=== PATIENT | female | born 1990 | race Caucasian/White ===

== ENCOUNTER 2020-06-23 13:37 | Observation (INO) | payer MEDICAID, OTHER ==
[2020-06-23 14:00] VITALS: BP 110/62
[2020-06-23] MEDS ORDERED: PNV1TABL54 PO (14:11)
[2020-06-24] MEDS ORDERED: PREN-217 PO (13:35)
== END 2020-06-23 16:35 | disposition home or self-care (01) ==
LOC: 4S 13:37
PROVIDERS: ADMIT Obstetrics & Gynecology; ATTEND Obstetrics & Gynecology
DX: O62.9 Abnormality of forces of labor, unspecified (principal); Z3A.39 39 weeks gestation of pregnancy
CPT/HCPCS: 59025; 76805; G0378

== ENCOUNTER 2020-06-24 12:10 | Inpatient (IN) | payer OTHER ==
[~2020-06-24 12:10] MED LIST: PNV1TABL54 PO
[2020-06-24] MEDS ORDERED: METOCLOPRAMIDE HCL 5 MG/ML 2 ML VIAL IVP PRN (13:00)
[2020-06-24] MEDS ORDERED: CITRIC ACID/SODIUM CITRATE 30 ML SOLUTION UDCUP PO PRN (13:00)
[2020-06-24] MEDS ORDERED: RINGERS SOLUTION,LACTATED 1,000 ML IV PRN (13:00)
[2020-06-24] MEDS ORDERED: OXYTOCIN 30 UNITS/LACT RINGERS 500 ML IV PRN (13:00)
[2020-06-24] MEDS ORDERED: CARBOPROST TROMETHAMINE 250 MCG/ML AMP IM PRN (13:00)
[2020-06-24] MEDS ORDERED: METHYLERGONOVINE MALEATE 0.2 MG/ML VIAL IM PRN (13:00)
[2020-06-24] MEDS ORDERED: LIDOCAINE/PF 1% 30 ML VIAL INJ PRN ×2 (13:00→22:15)
[2020-06-24] MEDS ORDERED: PREN-217 PO (13:35)
[2020-06-24 13:38] VITALS: BP 103/62
[2020-06-24 13:41] LABS: BASOPHILS % (AUTO) 0.5 % (0.0-2.0); EOSINOPHILS % (AUTO) 0.7 % (1.0-6.0); HEMATOCRIT 37.6 % (36-46); HEMOGLOBIN 12.5 g/dL (12.0-16.0); LYMPHOCYTES # (AUTO) 1.9 K/uL (1.0-4.8); LYMPHOCYTES % (AUTO) 15.5 % (22.0-44.0); MEAN CORPUSCULAR HEMOGLOBIN 29.2 pg (26.0-34.0); MEAN CORPUSCULAR HGB CONC 33.2 G/dL (31.0-37.0); MEAN CORPUSCULAR VOLUME 88 fL (80-100); MONOCYTES # (AUTO) 0.7 K/uL (0.1-1.0); MONOCYTES % (AUTO) 5.9 % (2.0-9.0); NEUTROPHILS # (AUTO) 9.3 K/uL (1.8-7.7); NEUTROPHILS % (AUTO) 77.4 % (40.0-70.0); PLATELET COUNT (AUTO)-OB 325 K/uL (150-450); RED BLOOD CELL COUNT(AUTO) 4.26 MIL/uL (4.00-5.20); RED CELL DISTRIBUTION WIDTH 13.1 % (11.5-14.5)
[2020-06-24] MEDS: RINGERS SOLUTION,LACTATED 1,000 ML IV SCH ×3 (13:48→17:54)
[2020-06-24] MEDS: FentaNYL CITRATE-PF 100 MCG/2 ML VIAL IVP PRN ×2 (17:55→17:57)
[2020-06-24] MEDS ORDERED: ROPIVACAINE HCL/PF 0.2% 100 ML ED ONE (19:13)
[2020-06-24] MEDS ORDERED: DiphenhydrAMINE HCL 50 MG/ML VIAL IVP PRN (19:30)
[2020-06-24] MEDS ORDERED: ONDANSETRON HCL 4 MG/2 ML VIAL IVP PRN (19:30)
[2020-06-24] MEDS ORDERED: NALBUPHINE HCL 10 MG/ML VIAL IVP PRN (19:30)
[2020-06-24] MEDS ORDERED: ROPIVACAINE HCL/PF 0.2% 100 ML ED PRN (19:30)
[2020-06-24] MEDS ORDERED: OXYGEN THERAPY IH SCH (20:00)
[2020-06-24] MEDS ORDERED: MINERAL OIL 30 ML UDCUP VG ONE (21:15)
[2020-06-24] MEDS ORDERED: OXYTOCIN 30 UNITS/LACT RINGERS 500 ML IV ONE (22:08)
[2020-06-24] MEDS ORDERED: BENZOCAINE 20%/MENTHOL 56 GM SPRAY CANISTER TP PRN (22:15)
[2020-06-24] MEDS ORDERED: OxyCODONE HCL/ACETAMINOPHEN 5-325 MG TABLET PO PRN ×2 (22:15)
[2020-06-24] MEDS ORDERED: GLYCERIN/WITCH HAZEL LEAF 40 PADS JAR TP PRN (22:15)
[2020-06-24] MEDS ORDERED: MAGNESIUM HYDROXIDE SUSPENSION 30 ML UDCUP PO PRN (22:15)
[2020-06-24] MEDS ORDERED: LANOLIN 7 GM OINTMENT TP PRN (22:15)
[2020-06-25] MEDS ORDERED: AMPICILLIN SODIUM 2 GM/NS 100 ML IV ONE (02:00)
[2020-06-25] MEDS ORDERED: AMPICILLIN SODIUM 1 GM/NS 50 ML IV SCH (06:00)
[2020-06-25 06:34] LABS: BASOPHILS % (AUTO) 0.3 % (0.0-2.0); EOSINOPHILS % (AUTO) 0.2 % (1.0-6.0); HEMATOCRIT 35.4 % (36-46); HEMOGLOBIN 12.3 g/dL (12.0-16.0); LYMPHOCYTES # (AUTO) 2.3 K/uL (1.0-4.8); MEAN CORPUSCULAR HEMOGLOBIN 30.6 pg (26.0-34.0); MEAN CORPUSCULAR HGB CONC 34.7 G/dL (31.0-37.0); MEAN CORPUSCULAR VOLUME 88 fL (80-100); MONOCYTES # (AUTO) 0.8 K/uL (0.1-1.0); MONOCYTES % (AUTO) 4.5 % (2.0-9.0); NEUTROPHILS # (AUTO) 14.7 K/uL (1.8-7.7); PLATELET COUNT (AUTO)-OB 313 K/uL (150-450); RED BLOOD CELL COUNT(AUTO) 4.02 MIL/uL (4.00-5.20); RED CELL DISTRIBUTION WIDTH 13.2 % (11.5-14.5)
[2020-06-25] MEDS: IBUPROFEN 800 MG TABLET PO PRN ×2 (06:52→15:27)
[2020-06-26] MEDS: IBUPROFEN 800 MG TABLET PO PRN (09:34)
[2020-06-26] MEDS ORDERED: DOCU-275 PO (09:43)
[2020-06-26] MEDS ORDERED: IBUP-2071 PO (09:43)
== END 2020-06-26 10:25 | disposition home or self-care (01) | DRG 560 ==
LOC: 4S 12:10 → OBSVTOIN 12:50
PROVIDERS: ADMIT Obstetrics & Gynecology Obstetrics; ATTEND Obstetrics & Gynecology Obstetrics
PROC: 10E0XZZ Delivery of Products of Conception, External Approach (ICD-10-PCS; principal; 2020-06-24)
PROC: 0KQM0ZZ Repair Perineum Muscle, Open Approach (ICD-10-PCS; 2020-06-24)
PROC: 3E0R3BZ Introduction of Anesthetic Agent into Spinal Canal, Percutaneous Approach (ICD-10-PCS; 2020-06-24)
PROC: 00HU33Z Insertion of Infusion Device into Spinal Canal, Percutaneous Approach (ICD-10-PCS; 2020-06-24)
DX: O77.0 Labor and delivery complicated by meconium in amniotic fluid (principal); O70.1 Second degree perineal laceration during delivery; Z3A.39 39 weeks gestation of pregnancy; Z37.0 Single live birth
CPT/HCPCS: 86850; 86900; 86901; J2590; J2795; J3010; J7120